=== PATIENT | male | born 1975 ===

== ENCOUNTER 2016-10-11 09:12 | Inpatient (IN) | payer OTHER ==
[2016-10-04 11:02] VITALS: BMI 27.6
[2016-10-11] MEDS ORDERED: Absorbable Gelatin Sponge Size 100 ONE (09:54)
[2016-10-11] MEDS ORDERED: Lidocaine 1% w Epi 1:100,000 Inj ONE (09:54)
[2016-10-11] MEDS ORDERED: Thrombin Topical 5,000 IU Spray Kit ONE (09:55)
[2016-10-11] MEDS ORDERED: Bupivacaine 0.5% Inj(30mL) ONE (09:55)
[2016-10-11] MEDS ORDERED: Bacitracin 50,000 UNIT in Sodium Chloride 0.9% Irrig 1,000 ML IR SCH (10:00)
[2016-10-11] MEDS ORDERED: Midazolam 2 MG/2 ML VIAL ONE (10:24)
[2016-10-11] MEDS ORDERED: Propofol 10 mg/ml Inj (20 ML) ONE ×3 (10:24→11:59)
[2016-10-11] MEDS ORDERED: Succinylcholine Chloride 20 mg/ml Syr (5 ml) IV ONE (10:46)
[2016-10-11] MEDS ORDERED: Lactated Ringer's 1,000 ML IV ONE ×2 (11:00→12:30)
[2016-10-11] MEDS ORDERED: ceFAZolin IV 1 gm in Dextrose 100 ML IVPB ONE (11:01)
[2016-10-11] MEDS ORDERED: Bacitracin Ointment 30 GM TUBE ONE (11:01)
[2016-10-11] MEDS ORDERED: Lactated Ringer's 1,000 ML IV SCH (14:15)
[2016-10-11] MEDS: HYDROmorphone 0.5 mg/0.5 ml ISec IVP PRN ×4 (14:15→15:14)
[2016-10-11] MEDS ORDERED: HYDROmorphone 0.5 mg/0.5 ml ISec IVP PRN (15:31)
--- NOTE | 2016-10-11 16:39 | RAD ---
PROCEDURE: Fluoroscopy up to 1 hr. HISTORY: CERVICAL HERNIATED DISC COMPARISON: None TECHNIQUE: Standard protocol for this study/examination. FINDINGS: Total fluoroscopic time (continuous mode) utilized during the procedure: 35.3 seconds IMPRESSION: Less than 1 hr fluoroscopic time utilized during performance of the procedure.
[2016-10-11] MEDS: Oxycodone/Acetaminophen 5/325 mg Tab PO PRN (17:10)
[2016-10-11] MEDS: Benzocaine/Menthol (Cepacol) Lozenge MT SCH (21:04)
[2016-10-12] MEDS: Potassium Ch 20mEq in D5-1/2NS 1,000 ML IV SCH ×4 (00:30→14:51)
[2016-10-12] MEDS: Benzocaine/Menthol (Cepacol) Lozenge MT SCH ×10 (02:30→22:59)
[2016-10-12] MEDS: Oxycodone/Acetaminophen 5/325 mg Tab PO PRN ×5 (03:57→23:58)
--- NOTE | 2016-10-12 06:38 | HP ---
This is a young gentleman who had an on the job accident. He fell off a ladder approximately 10 feet . Since then, he has been suffering from significant neck pain. He describes pain in the cervical s pine that radiates towards both shoulders. He has dysesthesias in the same distribution. The pain i s constant. He finds it markedly difficult to sleep, difficult to stay in any same position more acacia n a few minutes. When he flexes his head forward, he notes tingling down the spine. His treatment has been a full year of physiotherapy. He is taking approximately three 500 mg Naprosy n tablets a day, all without much benefit. PAST MEDICAL HISTORY: Otherwise, benign. No ongoing medical problems. No other medications. He aguayo d herniorrhaphy. SOCIAL HISTORY: He has 4 children in the [place]. He smokes approximately 3-4 cigarettes a day and drinks socially. PHYSICAL EXAMINATION: He does demonstrate 5/5 strength throughout. Sensory exam is grossly intact. Reflexes are 2+ throughout. He has an equivocal Glasgow's sign. Lhermitte sign though is positive. He has fair amounts of ____ throughout the cervical spine. Range of motion is limited in all spher es. MRI of the cervical spine is a rather impressive study. He has 3-level disk disease. At C3-C4, he h as a very impressive disk herniation that is impacting and deforming the left side of the spinal cord . There is a rather significant left foraminal stenosis as well. At 4-5 there is a broad based disk , again causing cord impingement. 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 At 6-7, again a rather large herniation with annular tear impacting the left C7 nerve root wi th focal kyphosis. The patient is suffering with severe discogenic neck pain and cervical radiculopathy that has failed conservative treatment over a 2+ year period. He was offered the possibility of operative interventi on by a 2-level diskectomy at 3-4 and 4-5, and separately a C7 diskectomy at C6-C7 with fusion. We h ad an intensive discussion over 2 separate office visits about the nature of the procedure, the alter natives, potential risks, complications, realistic chance of success and long-term outlook. I answer ed all of his questions. All was done through a cloth dyer. He fully understood all the ab ove and has elected to proceed. He is now being admitted for this combination procedure. Chuy Ruby MD cc: 131 TT: 10/02/2016 14:55:41 mn
--- NOTE | 2016-10-12 09:29 | CP.PCM.PN ---
Subjective - Date & Time of Evaluation Date of Evaluation: 10/12/16 Time of Evaluation: 09:25 - Subjective Subjective: POD 1 c/o sore throat feels stronger in UE's 5/5 throughout dsg c and d p if tolerates po can be dced will encourage po intake amb in halls Objective - Vital Signs/Intake and Output Vital Signs (last 24 hours): Temp Pulse Resp BP Pulse Ox 98.4 F 78 20 116/73 97 10/12/16 07:17 10/12/16 07:17 10/12/16 07:17 10/12/16 07:17 10/12/16 07:17 Intake and Output: 10/12/16 10/12/16 06:59 18:59 Output Total 700 850 Balance -700 -850 - Medications Medications: Current Medications Acetaminophen (Tylenol 325mg Tab) 650 mg PO Q6 PRN PRN Reason: Fever >100.4 F Benzocaine/Menthol (Cepacol Sore Throat) 1 jennifer MT Q2 DENYS Last Admin: 10/12/16 08:26 Dose: Not Given Potassium Chloride/Dextrose/Sod Cl (Potassium Chl 20 Meq In D5-1/2ns) 1,000 mls @ 100 mls/hr IV .Q10H DENYS Last Admin: 10/12/16 04:20 Dose: 100 mls/hr Oxycodone/Acetaminophen (Percocet 5/325 Mg Tab) 2 tab PO Q4H PRN PRN Reason: Pain, moderate (4-7) Stop: 10/14/16 13:54 Last Admin: 10/12/16 03:57 Dose: 2 tab
--- NOTE | 2016-10-12 10:24 | OP ---
PROCEDURE DATE: 10/11/2016 PREOPERATIVE DIAGNOSIS: Herniated disk C6-7. POSTOPERATIVE DIAGNOSIS: Herniated disk C6-7. PROCEDURE: Anterior cervical diskectomy, fixation and fusion C6-7. SURGEON: Chuy Ruby MD VIOLENT CRIMES DETECTIVE: Ishmael Salas MD ANESTHESIA: General endotracheal. ESTIMATED BLOOD LOSS: 50 mL. COMPLICATIONS: None. JUSTIFICATION: The patient immediately status post a C3-4, 4-5 anterior diskectomy and fusion what w as done as a completely separate procedure as planned. I will pick it up from the point of performin g 6-7. The area had been completely prepped and draped. We traced out the incision overlying the C6-7 disk. This was marked just to left of midline, infiltrated with local anesthesia. The incision made with a 10 blade knife, carried down to the level of the platysma. Platysma was opened in the direction o f its fibers. Sharp and blunt dissection then carried forth in the plane between the sternocleidomas toid and the carotid laterally; the trachea and esophagus medially to encounter the anterior spine. This was cleared with Kitner elevators. Needle was placed in the disk space, which was confirmed flu oroscopically to be the correct C6-7 level. At this point, the longus colli muscles were reflected laterally bilaterally. A self-retaining Caspa r type retracting system was placed. The ET cuff had already been deflated. The disk was then incised and grossly emptied of disk material with the use of pituitary rongeurs and various curettes. Then the microscope was brought in. Under microscopic vision, we removed the last vestige of annulus, herniated disk with various curette s and Kerrison rongeurs. We teased a 1 mm Kerrison behind the posterior longitudinal ligament. Ther efore, identifying and decompressing the anterior dura; 1 and 2 mm Kerrisons were then used to remove all soft tissue off the anterior dura, removing a little bit of the posterior endplate above and bel ow. Foraminotomies were performed laterally bilaterally with the use of a 2 mm Kerrison, particularl y on the right side, which was his more symptomatic side. A blunt nerve hook was used to inspect eac h foramen to confirm decompression which it was, in fact, complete. At this point, hemostasis was assured with thrombinated powdered Gelfoam. The height and depth of th e disk space was measured. We chose a 5 mm trapezoidal carbon fusion cage. This was then filled wit h already harvested marrow which was impregnated on hydroxyapatite collagen sponge which was used to fill the case. A rasped instrument was used to decorticate the endplate above and below. The graft was then tapped into the interspace after decortication. It was assured lodged perfectly in place. Then, using constant lateral fluoroscopy, we used the a [place] anterior locking Uniplate; 16 mm screws were placed sequentially through the plate into C6 and 7 respectively. Final x-ray confirmed excell ent position of the construct, that is the overlying plate, the 2 intervertebral screws and the inter body grafts. The overlying screw head locking mechanisms were then tightened. At this point, the wound was copiously irrigated with antibiotic solution. The retracting system was withdrawn. Some small bleeding points along the musculature and the longus colli were coagulated wi bipolar cautery. It was assured that hemostasis was complete. A layer of thrombinated powdered G elfoam placed in the prevertebral space for further hemostatic activity. The platysma was then reapp roximated using interrupted 3-0 Vicryl. There was minimal subQ and thus it was not closed. A runnin g 4-0 Monocryl stitch was used to close the skin. With additional Steri-Strips, a dressing was place d as was a soft collar. The patient was then aroused from anesthesia and extubated, noted to be moving all 4 extremities with excellent strength on his way to the recovery room. All counts were correct. Neurophysiological mo nitoring remained stable over the procedure. There were no complications. Chuy Ruby MD cc: 131 TT: 10/12/2016 10:23:04 an
[2016-10-12 15:23] VITALS: RESP 20
[2016-10-13] MEDS: Benzocaine/Menthol (Cepacol) Lozenge MT SCH ×8 (00:05→14:20)
[2016-10-13] MEDS: Oxycodone/Acetaminophen 5/325 mg Tab PO PRN ×3 (05:03→14:21)
[2016-10-13 07:39] VITALS: TEMP 97.6; O2SAT 97
--- NOTE | 2016-10-13 08:39 | OP ---
PROCEDURE DATE: 10/11/2016 PREOPERATIVE DIAGNOSIS: Multiple disk herniations. POSTOPERATIVE DIAGNOSIS: Multiple disk herniations. PROCEDURE: Anterior diskectomy, fixation and fusion C3-C4, C4-C5. SURGEON: Chuy Ruby MD PIPELINE WELDER: Ishmael Salas MD ANESTHESIA: General endotracheal. ESTIMATED BLOOD LOSS: 100 mL. COMPLICATIONS: None. JUSTIFICATION: The patient is status post an on-the-job accident ever since when he has been sufferi ng significant neck pain, with radiating pain towards his right upper extremity, failed considerable conservative treatment. MRI documented significant disk herniations with spinal cord compromise at C 3-C4, C4-C5 as well as C6-C7. He had an autofusion at C5-C6. He was suggested to undergo decompress ion at all levels of spinal cord compression while leaving C5-C6 alone. Therefore, after much discus low, it was decided to proceed with 2 separate procedures. i.e., anterior diskectomy, fixation and f usion at 3-4 and 4-5 and separately at 6-7. The nature of this procedure, the rationale behind it, a lternatives, potential risks, complications, realistic chance of success and recovery time discussed with him at length. All his questions were answered. He fully understood all the above and elected to proceed as offered. PROCEDURE: The patient was taken to the operating room, intubated, anesthetized. He was placed on t he OR table in a supine position. He was hooked up to neurophysiological monitoring. He was placed in very mild head extension. Shoulders gently taped down caudally. The incision was localized direc tly over the C4 vertebral body with lateral fluoroscopy. The anterior throat was scrubbed with aceto ne scrub, painted and draped with Betadine in the usual sterile manner. The incision was made with a 15-blade knife just left of midline approximately 4 cm in length. The platysma was then opened in t he direction of its fibers. Sharp and blunt dissection then performed in the plane between the gunter ocleidomastoid and the carotid laterally, the trachea and esophagus medially to encounter the anterio r spine. This was cleared with Kitner elevators. A needle was placed in the exposed disk spaces whi ch were confirmed fluoroscopically to be the correct C3-4 and C4-5 levels. At this point, each disk was incised and grossly emptied of disk material with the use of pituitary rongeurs and various curet s. When the gross diskectomy was completed, the microscope was brought in. Under microscopic vision, first at C3-4, we removed the last vestige of disk material. We ultimately achieved, a 1 mm Kerrison behind the annulus and removed all soft tissue off a very thin layer of re sidual posterior longitudinal ligament which was almost translucent. We could easily see the anterio r dura through it. Using the 1 and 2 mm Kerrisons to remove all soft tissue off the ligament complet caroline decompressing the area. We removed a little bit of the endplate above and below, cleaned it out ____ laterally bilaterally with a 2 mm Kerrison. A blunt nerve hook was used to inspect each foramen to confirm complete decompression. Hemostasis was then assured with thrombinated powdered Gelfoam. At this point, we measured the height and depth of the disk space and we moved on to C4-5. At C4-5, again, we were able to achieve a 1 mm Kerrison rongeur this time behind the PLL, remove all remaining disk material, annulus, ligament off the anterior dura. A little bit of the endplate above and belo w was again removed with Kerrisons, foraminotomies performed laterally bilaterally with the Kerrison. We performed foraminotomies laterally bilaterally again with a 2 mm Kerrison. Blunt nerve hook was used to inspect each foramen. Hemostasis assured with thrombinated powdered Gelfoam. Again, the de pth of the disk space was measured. At this point, we chose two 4 mm implants based on how they fit into the disk space. The endplates a helio and below were decorticated with a rasp instrument. At this point, also we harvested bone marro w from the C4 vertebrae. This was done by making a small opening in the anterior cortex using an 18 gauge needle to aspirate approximately 4-5 mL of marrow. This was then impregnated on collagen hydro xyapatite sponges. These sponges then filled the two 4 mm grafts which were tapped into the interspa ce until they were well sunk in. This was confirmed visually and fluoroscopically. At this point, we used the appropriate sized [employer] anterior locking plate. Using live fluoroscopy, s crews were placed through the plate into their respective vertebrae. We used a 14 mm screw at C5 and At this point, the appropriate sized screws were placed through the plate sequentially into C4, C3 an d C5. Final x-ray confirmed good position of the entire construct, that is the overlying plate and t he 3 intravertebral screws as well as the 2 interbody grafts. The overlying screw head locking mecha nisms were then tightened. The wound copiously irrigated with antibiotic solution. The retracting s ystem was withdrawn. The wound was observed for several minutes to ensure that hemostasis was comple te. A layer of thrombinated Gelfoam placed in the prevertebral space. The platysma was reapproximated using interrupted 3-0 Vicryl, the subQ closed using interrupted inver shaji 3-0 Vicryl, the skin closed with a running 4-0 Monocryl stitch, benzoin and Steri-Strips. At thi s point, the procedure was then taken over by moving down to the 6-7 level for a completely separate procedure. Chuy Ruby MD cc: 131 TT: 10/12/2016 10:17:10 ma 10/13/2016 07:39:06
[2016-10-13 14:20] VITALS: BP 118/79; PULSE 87
== END 2016-10-13 15:15 | disposition home or self-care (01) | DRG 473 ==
LOC: C.9S 09:12 → C.6T 16:16
PROVIDERS: ADMIT Neurological Surgery; ATTEND Neurological Surgery
PROC: 0RT30ZZ Resection of Cervical Vertebral Disc, Open Approach (ICD-10-PCS; 2016-10-11)
PROC: 0RB30ZZ Excision of Cervical Vertebral Disc, Open Approach (ICD-10-PCS; principal; 2016-10-11 11:00)
PROC: 0RG1070 Fusion of Cervical Vertebral Joint with Autologous Tissue Substitute, Anterior Approach, Anterior Column, Open Approach (ICD-10-PCS; 2016-10-11 11:00)
DX: M50.221 Other cervical disc displacement at C4-C5 level (principal); F17.210 Nicotine dependence, cigarettes, uncomplicated; M50.223 Other cervical disc displacement at C6-C7 level